=== PATIENT | male | born 1995 | race Two or more races ===

== ENCOUNTER 2024-07-13 09:59 | Emergency (ER) | payer MEDICAID, OTHER ==
[~2024-07-13] VITALS: Ht 175.3 cm; Wt 88.0 kg
--- NOTE | 2024-07-13 11:06 | ED.PDOC ---
Eye-HPI HPI Comments 29 year old male presents to the ED with chief complaint of eye redness. Patient reports that he has been experiencing right eye redness with burning pain for the past week. Patient relays that it happened spontaneously and has not had any injury to the right eye. Patient denies any fever, chills, blurred vision, discharge, headache, ear pain, or sore throat. Chief Complaint: Eye Problem Time Seen by MD: 11:03 Reviewed Notes: Nurses Notes, Medications, Allergies Allergies: Coded Allergies: NO KNOWN ALLERGIES (Unverified , 07/13/24) Information Source: Patient Mode of Arrival: Ambulatory Timing: Weeks Duration: Since onset Prehospital treatment: None Quality: Pain, Red Eye Location: Right Lids: Normal Conjunctiva: Injection Cornea: Normal Pupils: Normal EOM: Normal Fundus: Normal Onset: Spontaneous Throat Exposed to: None History of: None Past Medical History PAST MEDICAL HISTORY: Denies Surgical History: Denies all surgeries Family History Family History: Reviewed,noncontributory to illness Social History Smoker: Non-Smoker, Cigarettes Alcohol: Occasionally Drugs: Denies Drug Use Lives In: Home Constitutional: denies: chills, diaphoresis, fatigue, fever, malaise, sweats, weakness, others EENTM: reports: eye pain, eye redness; denies: blurred vision, double vision, ear bleeding, ear discharge, ear drainage, ear pain, ear ringing, hearing loss, mouth pain, mouth swelling, nasal discharge, nose bleeding, nose congestion, nose pain, photophobia, tearing, throat pain, throat swelling, voice changes, others Respiratory: denies: cough, hemoptysis, orthopnea, SOB at rest, shortness of breath, SOB with excertion, stridor, wheezing, others Cardiovascular: denies: chest pain, dizzy spells, diaphoresis, Dyspnea on exe rtion, edema, irregular heart beat, left arm pain, lightheadedness, palpitations, PND, syncope, others Gastrointestinal: denies: abdomen distended, abdominal pain, blood streaked bowels, constipated, diarrhea, dysphagia, difficulty swallowing, hematemesis, melena, nausea, poor appetite, poor fluid intake, rectal bleeding, rectal pain, vomiting, others Genitourinary: denies: burning, dysuria, flank pain, frequency, hematuria, incontinence, penile discharge, penile sore, pain, testicle pain, testicle swelling, urgency, others Neurological: denies: dizziness, fainting, headache, left sided numbness, left sided weakness, numbness, paresthesia, pre-existing deficit, right sided numbness, right sided weakness, seizure, speech problems, tingling, tremors, weakness, others Musculoskeletal: denies: back pain, gout, joint pain, joint swelling, muscle pain, muscle stiffness, neck pain, others Integumetry: denies: bruises, change in color, change in hair/nails, dryness, laceration, lesions, lumps, rash, wounds, others Allergic/Immunocompromised: denies: Difficulty Healing, Frequent Infections, Hives, Itching, others Hematologic/Lymphatic: denies: anemia, blood clots, easy bleeding, easy bruising, swollen glands, others Endocrine: denies: excessive hunger, excessive sweating, excessive thirst, excessive urination, flushing, intolerance to cold, intolerance to heat, unexplained weight gain, unexplained weight loss, others Psychiatric: denies: anxiety, bipolar disorder, depression, hopeless, panic disorder, schizophrenia, sleepless, suicidal, others All Other Systems: Reviewed and Negative Physical Exam General Appearance: Moderate Distress, Normal HEENT: Eye Lid (R), PERRL/EOMI, Pharynx Normal, TMs Normal Neck: Full Range of Motion, Non-Tender, Normal, Normal Inspection Respiratory: Chest Non-Tender, Lungs Clear, No Accessory Muscle Use, No Respiratory Distress, Normal Breath Sounds Cardiovascular: No Edema, No JVD, No Murmur, No Gallop, Normal Peripheral Pulses, Regular Rate/Rhythm Breast Exam: Deferred Gastrointestinal: No Organomegaly, Non Tender, No Pulsatile Mass, Normal Bowel Sounds, Soft Genitalia: Deferred Pelvic: Deferred Rectal: Deferred Extremities: No calf tenderness, Normal capillary refill, Normal inspection, Normal range of motion, Non-tender, No pedal edema Musculoskeletal : Apperance: Normal Neurologic: Alert, edger feeder II-XII nml as Tested, No Motor Deficits, Normal Affect, Normal Mood, No Sensory Deficits Cerebellar Function: Normal Reflexes: Normal Skin: Dry, Normal Color, Warm Peripheral Pulses: 3+ Radial (R), 3+ Radial (L) Lymphatic: No Adenopathy Was a procedure done? Was a procedure done?: No EENT DIFF Eye: Conjunctivitis, Allergic, Bacterial X-Ray, Labs, Meds, VS Vital Signs Date Time Temp Pulse Resp B/P (MAP) Pulse Ox O2 Delivery O2 Flow Rate FiO2 07/13/24 10:07 97.9 103 18 118/79 (92) 99 Patient alert and oriented. Right eye redness. Vitals stable. Answering all questions. No leg swelling. Denies any trauma to the eye. Has good vision. Saturation pristine on room air. Denies shortness of breath. Was given prescription of gentamicin antibiotic. Explained to the patient. Was told to follow up with his primary care physician. Was told to come back if there is any problem. Time of 1ST Reevaluation: 12:03 Reevaluation 1ST: Unchanged Patient Education/Counseling: Diagnosis, Treatment Family Education/Counseling: No Family Present Additional Information I discussed treatment and results with medical personnel. Departure 1 Departure Time of Disposition: 12:07 Impression: Primary Impression: Conjunctivitis Qualified Codes: H10.31 - Unspecified acute conjunctivitis, right eye Disposition: HOME / SELF CARE / HOMELESS Condition: Good e-Prescriptions Gentamicin Sulfate (Gentamicin Sulfate) 0.3 % Kaylin 2 DROP EACHEYE QID for 5 Days, #5 ML Prov: EUGENE SHARP MD 07/13/24 Discharged With: Self Critical Care Note Critical Care Time?: No Stability Stability form required: No Heart Score Heart Score: Heart Score Response (Comments) Value History N/A 0 EKG N/A 0 Age N/A 0 Risk Factors N/A 0 Troponin N/A 0 Total 0 I personally scribed for EUGENE SHARP MD ([email or web address]) on 07/13/24 at 11:06. Electronically submitted by Jordan Eli ([email or web address]). EUGENE SHARP MD Jul 13, 2024 11:06
[2024-07-13] MEDS ORDERED: GENT0.3S10 EACHEYE (12:08)
[2024-07-13 12:26] VITALS: BP 115/74; PULSE 100; RESP 18; TEMP 98; O2SAT 99
== END 2024-07-13 12:29 | disposition home or self-care (01) ==
LOC: ER 09:59 → EDBD 09:59 → ER 12:28
DX: H10.9 Unspecified conjunctivitis (principal)